=== PATIENT | male | born 1955 | race Caucasian/White ===

== ENCOUNTER 2019-05-31 14:29 | Emergency (ER) | payer OTHER ==
--- NOTE | 2019-05-31 22:30 | UC ---
Throat Pain/Nasal Adrián HPI - HPI Summary HPI Summary: 64 year old male with no PMH presents with possibe FB in trachea. Patient states that ~ 2 days ago while eating felt food go into trachea. + voluntary coughing, but was unable to express anything. Continues to have sensation of FB stuck below sternum. No pain, no SOB, no coughing. Overall patient feeling well, able to swallow without difficulty, no fever, chills. Denies other symptoms. no N/V. - History of Current Complaint Chief Complaint: UCRespiratory Stated Complaint: resp.[email or web address] Time Seen by Provider: 05/31/19 16:27 Hx Obtained From: Patient Onset/Duration: Sudden Onset, Lasting Days - 2, Still Present Severity: Mild Pain Intensity: 1 Pain Scale Used: 0-10 Numeric Cough: Nonproductive Associated Signs & Symptoms: Positive: Other - FB sensation below sternum. Negative: Wheezing, Hoarseness, Sinus Discomfort, Nasal Discharge, Fever, Vomiting, Rash - Allergies/Home Medications Allergies/Adverse Reactions: Allergies Allergy/AdvReac Type Severity Reaction Status Date / Time oxycodone Allergy Severe See Comment Verified 05/31/19 14:36 wild grapes Allergy Intermediate itchy Uncoded 08/31/15 12:17 throat Home Medications: Home Medications Multivitamin [Multivitamins] 1 cap PO DAILY 05/31/19 [History Confirmed 05/31/19 ] PMH/Surg Hx/FS Hx/Imm Hx Previously Healthy: Yes - Surgical History Surgical History: Yes Surgery Procedure, Year, and Place: deviated septum repair - Family History Known Family History: Positive: Non-Contributory - Social History Alcohol Use: Occasionally Substance Use Type: None Smoking Status (MU): Never Smoked Tobacco Review of Systems All Other Systems Reviewed And Are Negative: Yes Constitutional: Positive: Negative. Negative: Fever, Chills, Fatigue ENT: Positive: Other - FB sensation trachea. Negative: Sore Throat, Ear Ache, Nasal Discharge Respiratory: Positive: Cough - voluntary, non-productive Cardiovascular: Negative: Palpitations, Chest Pain Psychological: Positive: Negative Is Patient Immunocompromised?: No Physical Exam Triage Information Reviewed: Yes Appearance: Well-Appearing, No Pain Distress, Well-Nourished Vital Signs: Initial Vital Signs Temp 98.4 F 05/31/19 14:44 Pulse 64 05/31/19 14:44 Resp 18 05/31/19 14:44 Pulse Ox 98 05/31/19 14:44 Vital Signs Reviewed: Yes Eyes: Positive: Conjunctiva Clear ENT: Positive: Hearing grossly normal, Pharynx normal, Uvula midline. Negative : Pharyngeal erythema, Tonsillar swelling, Tonsillar exudate Neck: Positive: Supple, Nontender, No Lymphadenopathy Respiratory: Positive: Chest non-tender, Lungs clear, Normal breath sounds, No respiratory distress, No accessory muscle use. Negative: Respiratory distress, Decreased breath sounds, Crackles, Rhonchi, Stridor, Wheezing, Expiration Cardiovascular: Positive: RRR, No Murmur Psychological Exam: Normal Skin Exam: Normal Throat Pain/Nasal Course/Dx - Course Course Of Treatment: X-ray obtained, calcified LN, seen on prior exams without change. Patient was unable to stay due to work constraints, left without results. Called [facility] at 10:04, attempted to call back at 10:15 without answer. Nurse will call back tomorrow with further instruction: Patient should take naproxen/ motrin for 1-2 days to decrease inflammation/ irritation. Call Dr. Salvador office for follow up in 2-3 days if symptoms persist. GO to ER with decreased swallowing, shortness of breath, chest pain. - Differential Dx/Diagnosis Differential Diagnosis/HQI/PQRI: Foreign Body, Laryngitis, Peritonsillar Abscess , Pharyngitis Provider Diagnosis: Throat irritation Discharge - Sign-Out/Discharge Documenting (check all that apply): Patient Departure All imaging exams completed and their final reports reviewed: Yes - Discharge Plan Condition: Good Disposition: HOME Patient Education Materials: Foreign Body Ingestion (ED) Referrals: Oral Jones MD [Primary Care Provider] - Margarita Weber MD [Medical Doctor] - (Follow up 2-3 days if symptoms continue ) Additional Instructions: Patient was unable to stay due to work constraints, left without results. X- ray negative for PNA, FB. Nurse will call back tomorrow with further instruction: - Patient should take naproxen/ motrin for 1-2 days to decrease inflammation/ irritation. - Call Dr. Salvador office for follow up in 2-3 days if symptoms persist. - GO to ER with decreased swallowing, shortness of breath, chest pain. - Billing Disposition and Condition Condition: GOOD Disposition: Home - Attestation Statements Provider Attestation: This patient was not seen by me. I was available for consult. SARI
== END 2019-05-31 17:32 | disposition home or self-care (01) ==
LOC: UCEAST 14:29
DX: J02.9 Acute pharyngitis, unspecified (principal); Z88.5 Allergy status to narcotic agent
CPT/HCPCS: 71046; 99212; G0463